=== PATIENT | female | born 1980 | race Caucasian/White ===

== ENCOUNTER 2017-06-05 14:29 | Outpatient (CLI) | payer MEDICAID ==
[~2017-06-05] VITALS: Ht 170.2 cm; Wt 63.8 kg
[2017-06-05 15:36] VITALS: BP 102/61; PULSE 83; RESP 18; Ht 170.2 cm; Wt 63.8 kg
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
== END 2017-06-05 20:25 | disposition home or self-care (01) ==
LOC: OBT 14:29 → L-D 14:29 → OBT 20:25
PROVIDERS: ATTEND Obstetrics & Gynecology
DX: O9A.213 Injury, poisoning and certain other consequences of external causes complicating pregnancy, third trimester (principal); Z3A.29 29 weeks gestation of pregnancy; S39.91XD Unspecified injury of abdomen, subsequent encounter; W50.0XXD Accidental hit or strike by another person, subsequent encounter
CPT/HCPCS: 76818; 85460; 86850; 86900; 86901; Z7500; G0463